=== PATIENT | female | born 1965 | race Caucasian/White ===

== ENCOUNTER 2020-11-18 09:57 | Emergency (ER) | payer OTHER ==
[2020-11-18 12:11] LABS: HEMOGLOBIN 15.6 gm/dl (12.3-15.3); RED BLOOD COUNT 4.08 M/UL (4.00-5.10); WHITE BLOOD COUNT 3.4 K/UL (4.5-11.0)
[2020-11-18 12:43] LABS: BUN/CREATININE RATIO 17 (0-10)
[2020-11-18] MEDS ORDERED: ZOFRAN ODT 4 MG4 MG PO (15:01)
[2020-11-18] MEDS ORDERED: LIBRIUM CAP 2525 MG PO (15:01)
[2020-11-18] MEDS ORDERED: OMNICEF 300 MG300 MG PO (15:01)
== END 2020-11-18 15:40 | disposition home or self-care (01) ==
LOC: ER1 09:57
PROVIDERS: Emergency Medicine
DX: N39.0 Urinary tract infection, site not specified (principal); F10.231 Alcohol dependence with withdrawal delirium; J45.909 Unspecified asthma, uncomplicated
CPT/HCPCS: 70450; 71045; 80053; 81001; 82140; 82550; 82553; 83605; 83690; 83880; 84484; 85025; 85610; 85730; 93005; 96374; 96375; 96376; 99284; J0696; J2405; J3360; Q9967

== ENCOUNTER 2021-01-10 13:37 | Emergency (ER) | payer OTHER ==
[~2021-01-10 13:37] MED LIST: LIBRIUM CAP 2525 MG PO; OMNICEF 300 MG300 MG PO; ZOFRAN ODT 4 MG4 MG PO
[2021-01-10] MEDS ORDERED: CEPHALEXIN500 M1 PO (15:16)
[2021-01-10] MEDS ORDERED: BACTROBAN OINT22 GM EXT (15:16)
== END 2021-01-10 15:18 | disposition home or self-care (01) ==
LOC: ER1 13:37
DX: S91.332A Puncture wound without foreign body, left foot, initial encounter (principal); X58.XXXA Exposure to other specified factors, initial encounter
CPT/HCPCS: 73630; 99283